=== PATIENT | male | born 1985 | race Caucasian/White ===

== ENCOUNTER 2017-12-12 14:50 | Emergency (ER) | payer BC ==
[2017-12-12 14:56] VITALS: BP 120/56; PULSE 89; RESP 18; TEMP 97.9; O2SAT 94
--- NOTE | 2017-12-12 15:18 | EDPHY ---
H & P Time Seen by Provider: 12/12/17 14:59 HPI/ROS: CHIEF COMPLAINT: Right knee pain HISTORY OF PRESENT ILLNESS: [place] the rock [place] and stepping up on his right knee with internal rotation had pain and now can't fully extend it without pain. Patient is 32 years old and has had symptoms intermittently since he was 12 years old with knee pain. He states that he will occasionally suddenly get knee pain and feel like it locks up on him, it will last for several hours and then resolved and he will be able to straighten it out. This feels identical to those. Currently it is 2 hr later and he still is more comfortable in flexion. REVIEW OF SYSTEMS: No weakness or numbness in the right foot. No pain in the right foot. PAST MEDICAL HISTORY: Only as above Social history: From [place] General Appearance: Alert and conversant, cooperative. Patella is midline. Skin is normal in appearance. Normal flexion and can extend to 170 degrees before limited by pain. Stable to anterior and posterior drawer, varus and valgus stress, Mara's negative. Slight joint effusion palpated. No bony tenderness. Normal motor and sensory distally, normal vascular distally. Emergency Department course/MDM: Patient has unlikely to be vascular problem or infection or septic joint or fracture or ACL tear or DVT. More likely to be meniscal injury or other internal knee problem. We discussed that I feel that x-rays would be low yield in this case. I think it is unlikely that he had a knee dislocation and does not currently have patellar dislocation. Immobilizer, ice and orthopedic follow-up in 48 hr. Smoking Status: Never smoked Constitutional: Initial Vital Signs Temperature (C) 36.6 C 12/12/17 14:53 Heart Rate 89 12/12/17 14:53 Respiratory Rate 18 12/12/17 14:53 Blood Pressure 120/56 L 12/12/17 14:53 O2 Sat (%) 94 12/12/17 14:53 O2 Delivery Mode Room Air Allergies/Adverse Reactions: No Known Allergies Allergy (Unverified 12/12/17 14:53) Home Medications: Medication Instructions Recorded NK [No Known Home Meds] 12/12/17 MDM/Departure - Depart Disposition: Home, Routine, Self-Care Clinical Impression: Right anterior knee pain Condition: Good Instructions: Knee Pain (ED) Additional Instructions: Follow-up with orthopedist in the next 48 hr. knee immobilizer and ice as discussed Referrals: Mane Curtis MD [Medical Doctor] - 2-3 days, call for appt.
== END 2017-12-12 15:44 | disposition home or self-care (01) ==
DX: M25.561 Pain in right knee (principal)
CPT/HCPCS: L1830